=== PATIENT | female | born 1995 | race Caucasian/White ===

== ENCOUNTER 2017-04-20 08:56 | Outpatient (CLI) | payer OTHER ==
[2017-04-20] MEDS ORDERED: GADOPENTETATE DIMEGLUMINE 15 ML VIAL IV ONE (09:36)
== END 2017-04-20 18:24 | disposition home or self-care (01) ==
LOC: SMI 08:56
DX: D35.2 Benign neoplasm of pituitary gland (principal)
CPT/HCPCS: 70553; A9579